=== PATIENT | female | born 1950 | race Caucasian/White ===

== ENCOUNTER 2024-11-25 05:59 | Inpatient (IN) | payer MEDICARE, OTHER ==
[~2024-11-25] VITALS: Ht 167.6 cm; Wt 77.1 kg
[2024-11-25] MEDS ORDERED: ANESTHESIA TRAY IN PYXIS 1 EA TRAY MC ONE (06:48)
[2024-11-25] MEDS ORDERED: OXYMETAZOLINE HCL NASAL SPRAY 30 ML BOTTLE NS ONE (06:49)
[2024-11-25] MEDS ORDERED: dexaMETHasone SOD PHOSPHATE 2 ML ONE (06:49)
[2024-11-25] MEDS ORDERED: LIDOCAINE 2%-EPI 1:100,000 30 ML VIAL ONE (06:49)
[2024-11-25] MEDS ORDERED: ROCURONIUM BROMIDE 50 MG/5 ML ONE (07:08)
[2024-11-25] MEDS ORDERED: FENTANYL PF 250MCG/5ML AMPUL ONE (07:08)
[2024-11-25] MEDS ORDERED: ACET-2030 PO (11:16)
[2024-11-25] MEDS ORDERED: ISOT10CA PO (11:16)
[2024-11-25] MEDS ORDERED: ONDANSETRON HCL/PF 4 MG/2 ML VIAL IV PRN (11:30)
[2024-11-25] MEDS ORDERED: HYDROMORPHONE INJ 2 MG/ML DISP.SYRIN IV PRN (11:30)
[2024-11-25] MEDS ORDERED: SUCR1TAB PO (12:32)
[2024-11-25] MEDS ORDERED: LIPA1CAP10 PO (12:32)
[2024-11-25] MEDS ORDERED: NEBI5TAB8 PO (12:32)
[2024-11-25] MEDS ORDERED: PREG-57 PO (12:32)
[2024-11-25] MEDS ORDERED: ICOS1CAP PO (12:32)
[2024-11-25] MEDS ORDERED: QUET50TA PO (12:32)
[2024-11-25] MEDS ORDERED: CLON0.5T4 PO (12:32)
[2024-11-25] MEDS ORDERED: LINA145C PO (12:32)
[2024-11-25] MEDS ORDERED: TRAM50TA2 PO (12:32)
[2024-11-25] MEDS ORDERED: DONE10TA44 PO (12:32)
[2024-11-25] MEDS ORDERED: ROSU5TAB PO (12:32)
[2024-11-25] MEDS ORDERED: CLOP75TA15 PO (12:32)
[2024-11-25] MEDS: IV NS 0.9% 1,000 ML IV PRN (12:42)
[2024-11-25 16:00] VITALS: BP 119/73; TEMP 99; O2SAT 96
[2024-11-25] MEDS: SUCRALFATE 1 G TABLET PO SCH (16:56)
[2024-11-25] MEDS: METOPROLOL TARTRATE 25 MG TABLET PO SCH (16:57)
[2024-11-25] MEDS ORDERED: Medication Not On Formulary EA (Icosapent Ethyl (Vascepa) 2 CAP) PO SCH (17:00)
[2024-11-25] MEDS: VANCOMYCIN 1 GM in IV D5W 250ml IV SCH (18:01)
[2024-11-25] MEDS ORDERED: ACETAMINOPHEN 325 MG TABLET PO PRN (19:00)
[2024-11-25] MEDS ORDERED: hydrALAZINE HCL IV 20 MG VIAL IV PRN (19:00)
[2024-11-25] MEDS ORDERED: ONDANSETRON HCL/PF 4 MG/2 ML VIAL IVP PRN (19:00)
[2024-11-25 20:39] VITALS: BP 117/64; TEMP 97.9; O2SAT 94
[2024-11-25] MEDS: clonazePAM 0.5 MG TABLET PO SCH (21:13)
[2024-11-25] MEDS: ACETAMINOPHEN 325 MG TABLET PO PRN (21:19)
[2024-11-26 07:35] LABS: BASOPHILS % (AUTO) 0.1 % (0.0-2.0); HEMATOCRIT 37 % (33-45); HEMOGLOBIN 12.4 g/dL (11.5-14.8); LYMPHOCYTES # (AUTO) 1.1 K/uL (0.8-4.8); LYMPHOCYTES % (AUTO) 11.9 % (20.0-44.0); MEAN CORPUSCULAR HEMOGLOBIN 30 PG (26.0-33.0); MEAN CORPUSCULAR HGB CONC 34 g/dl (31.0-36.0); MEAN CORPUSCULAR VOLUME 89 fL (82-100); MONOCYTES # (AUTO) 0.8 K/uL (0.1-1.30); MONOCYTES % (AUTO) 8.2 % (2.0-12.0); NEUTROPHILS # (AUTO) 7.5 K/uL (1.8-8.9); NEUTROPHILS % (AUTO) 79.8 % (43.0-81.0); PLATELET COUNT (AUTO) 171 K/uL (150-450); RED BLOOD CELL COUNT(AUTO) 4.17 MIL/uL (4.0-5.2); RED CELL DISTRIBUTION WIDTH 13.7 % (11.5-15.0); WHITE BLOOD COUNT (AUTO) 9.4 K/uL (4.3-11.0)
[2024-11-26 07:41] LABS: BILIRUBIN,TOTAL 0.7 mg/dL (0.2-1.0); CALCIUM, SERUM 8.5 mg/dL (8.5-10.1); CREATININE 0.7 mg/dL (0.6-1.3); MAGNESIUM 2.1 mg/dL (1.8-2.4); PHOSPHORUS 3.3 mg/dL (2.5-4.9); POTASSIUM 4.3 mmol/L (3.5-5.1)
[2024-11-26 08:00] VITALS: BP 119/66; TEMP 98.1; O2SAT 94
[2024-11-26] MEDS: PREGABALIN 25 MG CAPSULE PO SCH (08:24)
[2024-11-26 08:25] VITALS: BP 119/66
[2024-11-26] MEDS: ATORVASTATIN 10 MG TABLET PO SCH (08:25)
[2024-11-26] MEDS: QUETIAPINE FUMARATE 25 MG TABLET PO SCH (08:25)
[2024-11-26] MEDS: CLOPIDOGREL BISULFATE 75 MG TABLET PO SCH (08:25)
[2024-11-26] MEDS: DONEPEZIL 5 MG TABLET PO SCH (08:25)
[2024-11-26] MEDS ORDERED: AMYLASE PO SCH (09:00)
[2024-11-26] MEDS ORDERED: LIPASE PO SCH (09:00)
[2024-11-26] MEDS ORDERED: Medication Not On Formulary EA (Linaclotide (Linzess) 145 MCG) PO SCH (09:00)
[2024-11-26] MEDS ORDERED: PROTEASE PO SCH (09:00)
== END 2024-11-26 13:25 | disposition home or self-care (01) | DRG 497 ==
LOC: DS 05:59 → MED 10:54
PROVIDERS: ADMIT Internal Medicine; ATTEND Internal Medicine
PROC: 0NSR04Z Reposition Maxilla with Internal Fixation Device, Open Approach (ICD-10-PCS; 2024-11-25)
PROC: 0NST0ZZ Reposition Right Mandible, Open Approach (ICD-10-PCS; 2024-11-25)
PROC: 0N5T0ZZ Destruction of Right Mandible, Open Approach (ICD-10-PCS; 2024-11-25)
PROC: 0NUR07Z Supplement Maxilla with Autologous Tissue Substitute, Open Approach (ICD-10-PCS; 2024-11-25)
PROC: 0NSV04Z Reposition Left Mandible with Internal Fixation Device, Open Approach (ICD-10-PCS; 2024-11-25)
PROC: 0NUV07Z Supplement Left Mandible with Autologous Tissue Substitute, Open Approach (ICD-10-PCS; 2024-11-25)
PROC: 0NUT07Z Supplement Right Mandible with Autologous Tissue Substitute, Open Approach (ICD-10-PCS; 2024-11-25)
PROC: 0NBV0ZX Excision of Left Mandible, Open Approach, Diagnostic (ICD-10-PCS; 2024-11-25)
PROC: 0N5R0ZZ Destruction of Maxilla, Open Approach (ICD-10-PCS; principal; 2024-11-25 07:30)
DX: S02.40CK Maxillary fracture, right side, subsequent encounter for fracture with nonunion (principal); S02.40DK Maxillary fracture, left side, subsequent encounter for fracture with nonunion; S02.69XK Fracture of mandible of other specified site, subsequent encounter for fracture with nonunion; X58.XXXD Exposure to other specified factors, subsequent encounter; M27.2 Inflammatory conditions of jaws; I25.10 Atherosclerotic heart disease of native coronary artery without angina pectoris; E78.5 Hyperlipidemia, unspecified; I10 Essential (primary) hypertension; J45.909 Unspecified asthma, uncomplicated; M27.49 Other cysts of jaw; D16.4 Benign neoplasm of bones of skull and face; J32.0 Chronic maxillary sinusitis
CPT/HCPCS: 36415; 80053-TC; 83735-TC; 84100-TC; 85025-TC; 88305-TC; 88311-TC; 88312-TC; A4223; A4338; C1713; G0378; J0690; J1100; J2704; J3010; J3370; J3490; J7030; J7060

== ENCOUNTER 2025-04-01 06:41 | Inpatient (IN) | payer MEDICARE, OTHER ==
[~2025-04-01] VITALS: Ht 160 cm; Wt 73.0 kg
[~2025-04-01 06:41] MED LIST: CLON0.5T4 PO; CLOP75TA15 PO; DONE10TA44 PO; ICOS1CAP PO; LINA145C PO; LIPA1CAP10 PO; NEBI5TAB8 PO; PREG-57 PO; QUET50TA PO; ROSU5TAB PO; SUCR1TAB PO; TRAM50TA2 PO
[2025-04-01] MEDS ORDERED: LIDOCAINE 2% JEL UROJET 10 ML MM ONE (09:17)
[2025-04-01] MEDS ORDERED: FENTANYL PF 100MCG/2ML AMPUL ONE (09:17)
[2025-04-01] MEDS ORDERED: OXYMETAZOLINE HCL NASAL SPRAY 30 ML BOTTLE NS ONE (09:18)
[2025-04-01] MEDS ORDERED: MIDAZOLAM HCL 2 MG/2ML VIAL ONE (09:18)
[2025-04-01] MEDS ORDERED: FAMOTIDINE/PF INJ 20 MG/2 ML VIAL IV ONE (09:18)
[2025-04-01] MEDS ORDERED: ROCURONIUM BROMIDE 50 MG/5 ML ONE (09:18)
[2025-04-01] MEDS ORDERED: LIDOCAINE 2%-EPI 1:100,000 30 ML VIAL ONE (09:20)
[2025-04-01] MEDS ORDERED: VANCOMYCIN 1 GM VIAL ONE (09:20)
[2025-04-01] MEDS ORDERED: dexaMETHasone SOD PHOSPHATE 2 ML ONE (09:20)
[2025-04-01] MEDS ORDERED: SUGAMMADEX SODIUM 200 MG/2 ML VIAL IV ONE (11:09)
[2025-04-01] MEDS ORDERED: HYDROMORPHONE 1 MG/1 ML DISP.SYRIN IV PRN (12:30)
[2025-04-01] MEDS ORDERED: ONDANSETRON HCL/PF 4 MG/2 ML VIAL IV PRN (12:30)
[2025-04-01 13:07] VITALS: BP 125/70; TEMP 98.3; O2SAT 96
[2025-04-01] MEDS ORDERED: ACETAMINOPHEN 325 MG TABLET PO PRN (13:30)
[2025-04-01] MEDS ORDERED: MAG HYDROX/AL HYDROX/SIMETH 30 ML UDC PO PRN (13:30)
[2025-04-01] MEDS ORDERED: MAGNESIUM HYDROXIDE 30 ML UDC PO PRN (13:30)
[2025-04-01] MEDS ORDERED: ONDANSETRON HCL/PF 4 MG/2 ML VIAL IVP PRN (13:30)
[2025-04-01] MEDS: IV NS 0.9% 1,000 ML IV PRN (13:46)
[2025-04-01 16:00] VITALS: BP 123/59; TEMP 98.4; O2SAT 96
[2025-04-01 20:00] VITALS: BP 146/65; TEMP 98.2; O2SAT 95
[2025-04-01] MEDS: ACETAMINOPHEN 325 MG TABLET PO PRN (20:08)
[2025-04-01 20:42] VITALS: BP 146/65; TEMP 98.2; O2SAT 95
[2025-04-01] MEDS: VANCOMYCIN 1 GM in IV D5W 250ml IV SCH (22:03)
[2025-04-02 08:00] VITALS: BP 127/63; TEMP 97.7; O2SAT 97
[2025-04-02 12:25] VITALS: TEMP 97.2
== END 2025-04-02 13:00 | disposition home or self-care (01) | DRG 908 ==
LOC: DS 06:41 → MED 11:15
PROVIDERS: ATTEND Nurse Practitioner Acute Care
PROC: 0NSR04Z Reposition Maxilla with Internal Fixation Device, Open Approach (ICD-10-PCS; 2025-04-01)
PROC: 09UQ07Z Supplement Right Maxillary Sinus with Autologous Tissue Substitute, Open Approach (ICD-10-PCS; 2025-04-01)
PROC: 0NUT07Z Supplement Right Mandible with Autologous Tissue Substitute, Open Approach (ICD-10-PCS; 2025-04-01)
PROC: 0NUR07Z Supplement Maxilla with Autologous Tissue Substitute, Open Approach (ICD-10-PCS; 2025-04-01)
PROC: 0N5V0ZZ Destruction of Left Mandible, Open Approach (ICD-10-PCS; 2025-04-01)
PROC: 0NST04Z Reposition Right Mandible with Internal Fixation Device, Open Approach (ICD-10-PCS; 2025-04-01)
PROC: 0NPW07Z Removal of Autologous Tissue Substitute from Facial Bone, Open Approach (ICD-10-PCS; 2025-04-01)
PROC: 0N5R0ZZ Destruction of Maxilla, Open Approach (ICD-10-PCS; 2025-04-01)
PROC: 0NBT0ZX Excision of Right Mandible, Open Approach, Diagnostic (ICD-10-PCS; 2025-04-01)
PROC: 0NPW04Z Removal of Internal Fixation Device from Facial Bone, Open Approach (ICD-10-PCS; principal; 2025-04-01 10:10)
DX: T86.831 Bone graft failure (principal); T84.69XA Infection and inflammatory reaction due to internal fixation device of other site, initial encounter; T85.79XA Infection and inflammatory reaction due to other internal prosthetic devices, implants and grafts, initial encounter; M27.2 Inflammatory conditions of jaws; D16.4 Benign neoplasm of bones of skull and face; E78.5 Hyperlipidemia, unspecified; J45.909 Unspecified asthma, uncomplicated; I10 Essential (primary) hypertension; G43.909 Migraine, unspecified, not intractable, without status migrainosus; Y83.2 Surgical operation with anastomosis, bypass or graft as the cause of abnormal reaction of the patient, or of later complication, without mention of misadventure at the time of the procedure; M89.38 Hypertrophy of bone, other site; Y92.009 Unspecified place in unspecified non-institutional (private) residence as the place of occurrence of the external cause
CPT/HCPCS: 87081-TC; 88300-TC; 88305-TC; 88311-TC; A4223; A4338; C1713; G0378; J1100; J1308; J1885; J2250; J2405; J2704; J3010; J3373; J3490; J7030; J7060